=== PATIENT | male | born 1940 | race Caucasian/White ===

== ENCOUNTER 2017-03-19 13:17 | Outpatient (CLI) | payer MEDICARE ==
[2017-03-19 14:02] LABS: Anion Gap 9 mmol/L (10-20); BUN (Urea Nitrogen) 14 mg/dL (8.4-25.7); BUN/Creatinine Ratio 11.38; Calc. Creatinine Clearance 0 mL/min (70-130); Carbon Dioxide 30 mmol/L (23-31); Chloride 102 mmol/L (98-107); Estimated GFR-MDRD 58; Phosphorus 2.9 mg/dL (2.3-4.7)
[2017-03-19] MEDS ORDERED: Iopamidol 370 76% 100 ML VIAL ONE (15:25)
--- NOTE | 2017-03-19 19:50 | CT ---
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 Prior hist ory of abdominal aortic aneurysm. Prior cholecystectomy. COMPARISON: 08/07/[address] angiogram of the chest, abdomen and pelvis is performed with 3D rendering. There is evidence for a very aneurysmal ectatic right aberrant subclavian artery which measures appr oximately 4 x 4.5 cm in AP and transverse dimensions from intima to intima. The lumen diameter appro ximates up to 3.1 cm. There is marked generalized atherosclerotic ectatic changes of the aorta with some stable dilatation of the ascending aorta, aortic arch, and descending aorta with a maximum AP a nd transverse dimensions of the descending thoracic aorta at the infrahilar level measuring outer di ameter of 5.6 x 6.0 cm. This is not significantly changed from the prior study of 08/07/16. There is extensive three vessel coronary artery calcific disease. Status post aortobiiliac stent in place involving the lower abdominal aorta bifurcation and proximal common iliac arteries. There is s ome aneurysmal dilatation of the abdominal aorta just above the level of the stent up to approximate ly 4.2 cm x 4.7 cm in transverse and AP dimensions respectively. There are multiple left renal cysts . Small stable liver cysts. Status post cholecystectomy. Visualized pancreas and spleen, and adrena l glands are unremarkable. No renal calculus or acute obstruction. There is some dilatation of th e left distal common iliac artery up to 2.4 cm. There appears to be some occlusive changes of the pr oximal right internal iliac artery. Both right and left external iliac arteries are patent. Colonic diverticulosis without acute diverticulitis. 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 Stable at herosclerotic ectatic changes of the thoracic aorta including ascending aortic arch and descending a ema particularly the descending aorta but stable. Aneurysmal dilatation of the abdominal aorta. Vas cular stent involving the aorta, bifurcation, and proximal iliac arteries. 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 Stable renal and liver cysts. No significant new process when compared to the prior 08/07/16 study. POS: [facility]
--- NOTE | 2017-03-20 10:16 | CT ---
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 Prior hist ory of abdominal aortic aneurysm. Prior cholecystectomy. COMPARISON: 08/07/[address] angiogram of the chest, abdomen and pelvis is performed with 3D rendering. There is evidence for a very aneurysmal ectatic right aberrant subclavian artery which measures appr oximately 4 x 4.5 cm in AP and transverse dimension. The lumen diameter approximates up to 3.1 cm. T here is marked generalized atherosclerotic ectatic changes of the aorta with some stable dilatation of the ascending aorta, aortic arch, and descending aorta with a maximum AP and transverse dimension s of the descending thoracic aorta at the infrahilar level measuring outer diameter of 5.6 x 6.0 cm. This is not significantly changed from the prior study of 08/07/16. There is extensive three vessel coronary artery calcific disease. Status post aortobiiliac stent in place involving the lower abdominal aorta bifurcation and proximal common iliac arteries. There is s ome aneurysmal dilatation of the abdominal aorta just above the level of the stent up to approximate ly 4.2 cm x 4.7 cm in transverse and AP dimensions respectively. There are multiple left renal cysts . Small stable liver cysts. Status post cholecystectomy. Visualized pancreas and spleen, and adrena l glands are unremarkable. No renal calculus or acute obstruction. There is some dilatation of th e left distal common iliac artery up to 2.4 cm. There appears to be some occlusive changes of the pr oximal right internal iliac artery. Both right and left external iliac arteries are patent. Colonic diverticulosis without acute diverticulitis. 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 Stable at herosclerotic ectatic changes of the thoracic aorta including ascending aortic arch and descending a ema particularly the descending aorta but stable. Aneurysmal dilatation of the abdominal aorta. Vas cular stent involving the aorta, bifurcation, and proximal iliac arteries. 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 Stable renal and liver cysts. No significant new process when compared to the prior 08/07/16 study.
== END 2017-03-19 13:18 | disposition home or self-care (01) ==
LOC: CT 13:17
DX: Z00.00 Encounter for general adult medical examination without abnormal findings (principal); I71.4 Abdominal aortic aneurysm, without rupture; Q27.8 Other specified congenital malformations of peripheral vascular system; Q25.49 Other congenital malformations of aorta; K76.89 Other specified diseases of liver; N28.1 Cyst of kidney, acquired
CPT/HCPCS: 36415; 71275; 74174; 80069